=== PATIENT | female | born 1995 ===

== ENCOUNTER 2023-05-09 23:08 | Emergency (ER) | payer OTHER ==
[~2023-05-09] VITALS: Ht 162.6 cm; Wt 73.9 kg
[2023-05-09 23:11] VITALS: O2SAT 97
[2023-05-09] MEDS ORDERED: IV NORMAL SALINE 1000 ML BAG IV ONE (23:30)
[2023-05-09 23:40] LABS: BASOPHILS # (AUTO) 0.3 K/UL (0.0-0.2); BASOPHILS % (AUTO) 3.3 % (0.0-2.0); EOSINOPHILS % (AUTO) 0.3 % (0.0-7.0); HEMATOCRIT 38.5 % (31.2-41.9); LYMPHOCYTES # (AUTO) 0.9 K/uL (0.8-4.8); LYMPHOCYTES % (AUTO) 10.3 % (20.5-51.5); MEAN CORPUSCULAR HEMOGLOBIN 31.6 uug (24.7-32.8); MEAN CORPUSCULAR HGB CONC 34 g/dL (32.3-35.6); MEAN CORPUSCULAR VOLUME 93.7 fL (75.5-95.3); MONOCYTES # (AUTO) 0.3 K/uL (0.1-1.30); NEUTROPHILS % (AUTO) 82.1 % (38.5-71.5); PLATELET COUNT (AUTO) 328 K/uL (179-408); RED CELL DISTRIBUTION WIDTH 13.4 % (12.3-17.7); WHITE BLOOD COUNT (AUTO) 8.5 K/uL (3.8-11.8)
[2023-05-09 23:41] LABS: DIFFERENTIAL COMMENT 1
[2023-05-09 23:46] LABS: CALCIUM 8.6 mg/dL (8.5-10.1); CREATININE 0.8 mg/dL (0.6-1.3); POTASSIUM 3.5 mmol/L (3.5-5.1)
[2023-05-09 23:51] LABS: BILIRUBIN,TOTAL 0.3 mg/dL (0.2-1.0); MAGNESIUM 2.1 mg/dL (1.8-2.4); TOTAL PROTEIN, SERUM 8.1 g/dL (6.4-8.2)
[2023-05-10] MEDS ORDERED: IV NORMAL SALINE 1000 ML BAG IV ONE (01:00)
== END 2023-05-10 00:35 | disposition left against medical advice (07) ==
LOC: ER 23:10
DX: F10.10 Alcohol abuse, uncomplicated (principal); Y90.0 Blood alcohol level of less than 20 mg/100 ml
CPT/HCPCS: 36415; 83735; 85025; A4606; A4663; G0480